=== PATIENT | female | born 1970 | race Caucasian/White ===

== ENCOUNTER 2019-04-07 14:57 | Inpatient (IN) | payer OTHER ==
[~2019-04-07] VITALS: Ht 170.2 cm; Wt 77.1 kg
[2019-04-07 15:16] VITALS: BP_SYST 128
[2019-04-07 16:33] LABS: BASOPHILS # (AUTO) 0.1 K/uL (0.0-0.2); BASOPHILS % (AUTO) 0.6 % (0.0-2.0); EOSINOPHILS % (AUTO) 0.3 % (0.0-4.0); HEMATOCRIT 36.7 % (36-48); HEMOGLOBIN 12.7 g/dL (12.0-16.0); LYMPHOCYTES # (AUTO) 0.6 K/uL (1.0-5.5); LYMPHOCYTES % (AUTO) 7.2 % (20.5-51.5); MEAN CORPUSCULAR HEMOGLOBIN 30 pg (27-31); MEAN CORPUSCULAR HGB CONC 35 % (32-36); MEAN CORPUSCULAR VOLUME 87 fL (79.0-98.0); MONOCYTES # (AUTO) 0.7 K/uL (0.0-1.0); MONOCYTES % (AUTO) 8.2 % (1.7-9.3); NEUTROPHILS # (AUTO) 7.2 K/uL (1.8-7.7); RED BLOOD CELL COUNT(AUTO) 4.21 MIL/uL (4.2-6.2); RED CELL DISTRIBUTION WIDTH 13.5 % (9.0-15.0); WHITE BLOOD COUNT (AUTO) 8.6 K/uL (4.8-10.8)
[2019-04-07 16:50] LABS: CALCIUM 9.1 mg/dL (8.4-11.0); CREATININE 2.08 mg/dL (0.55-1.30)
[2019-04-07 16:55] LABS: ALBUMIN 3.6 g/dL (3.4-4.8); TOTAL BILIRUBIN 5.4 mg/dL (0.0-1.0)
[2019-04-07 16:58] LABS: PLATELET COUNT (AUTO) 4 K/uL (130-430)
[2019-04-07 16:59] LABS: NEUTROPHILS % (AUTO) 83.7 % (40.0-70.0)
[2019-04-07] MEDS ORDERED: MORPHINE 2 MG/ML INJ. SYRINGE IVP ONE (17:00)
[2019-04-07 17:03] LABS: PROTHROMBIN TIME 10.5 SECS (9.5-12.5)
[2019-04-07 17:13] LABS: BILIRUBIN,URINE 3+ (NEGATIVE); BLOOD, URINE 3+ (NEGATIVE); CLARITY/URINE CLOUDY (CLEAR); COLOR,URINE BROWN (YELLOW); GLUCOSE,URINE TRACE (NEGATIVE); KETONES,URINE 1+ (NEGATIVE); LEUKOCYTE ESTERASE ,URINE 2+ (NEGATIVE); NITRITE, URINE POSITIVE (NEGATIVE); PROTEIN URINE 3+ (NEGATIVE)
[2019-04-07] MEDS ORDERED: PIPERACILLIN/TAZO 3.375 GM in NS 50 ML IV ONE (17:15)
[2019-04-07] MEDS ORDERED: NACL 0.9% IV ONE (17:15)
[2019-04-07] MEDS ORDERED: methylPREDNISolone SOD SUCC/PF 62.5 MG/ML VIAL IVP ONE (17:15)
[2019-04-07 17:31] LABS: BACTERIA,URINE MODERATE /HPF (None Seen); RBC,URINE 50-80 /HPF (0-3)
[2019-04-07 17:32] LABS: FINE GRANULAR CASTS,URINE 0-10 /LPF (None Seen); MUCUS,URINE None Seen /LPF (None Seen)
[2019-04-07] MEDS ORDERED: PANT20TA2 PO (17:40)
[2019-04-07] MEDS ORDERED: CEL20 PO (17:40)
[2019-04-07] MEDS ORDERED: LEVOFLOXACIN 500 MG/D5W 100 ML IV ONE (17:45)
[2019-04-07] MEDS ORDERED: PIPERACILLIN/TAZOBACTAM 3.375 GM/VIAL (ZOSYN) IV ONE (17:53)
[2019-04-07 18:09] LABS: BASOPHILS % (AUTO) 0.4 % (0.0-2.0); EOSINOPHILS % (AUTO) 0.2 % (0.0-4.0); HEMATOCRIT 33.4 % (36-48); HEMOGLOBIN 11.7 g/dL (12.0-16.0); LYMPHOCYTES # (AUTO) 0.8 K/uL (1.0-5.5); LYMPHOCYTES % (AUTO) 8.8 % (20.5-51.5); MEAN CORPUSCULAR HEMOGLOBIN 31 pg (27-31); MEAN CORPUSCULAR HGB CONC 35 % (32-36); MEAN CORPUSCULAR VOLUME 87 fL (79.0-98.0); MONOCYTES # (AUTO) 0.8 K/uL (0.0-1.0); MONOCYTES % (AUTO) 8.7 % (1.7-9.3); NEUTROPHILS # (AUTO) 7.2 K/uL (1.8-7.7); NEUTROPHILS % (AUTO) 81.9 % (40.0-70.0); RED BLOOD CELL COUNT(AUTO) 3.84 MIL/uL (4.2-6.2); RED CELL DISTRIBUTION WIDTH 13.5 % (9.0-15.0); WHITE BLOOD COUNT (AUTO) 8.8 K/uL (4.8-10.8)
[2019-04-07 18:21] LABS: PLATELET COUNT (AUTO) 6 K/uL (130-430)
[2019-04-07 19:59] VITALS: BP_SYST 133
[2019-04-07] MEDS ORDERED: ALBUTEROL SULFATE 0.083% 2.5 MG/3 ML VIAL.NEB INH PRN (20:15)
[2019-04-07 20:25] VITALS: BP_SYST 133
[2019-04-07] MEDS ORDERED: CEFEPIME 1 GM in D5W 50 ML IV SCH (21:00)
[2019-04-07] MEDS ORDERED: ONDANSETRON HCL 4 MG/2 ML VIAL IVP PRN (21:15)
[2019-04-07] MEDS ORDERED: CEFEPIME 1 GM/VIAL (MAXIPIME) ONE (21:25)
[2019-04-07] MEDS: MORPHINE 2 MG/ML INJ. SYRINGE IVP PRN (21:40)
[2019-04-07 23:00] LABS: BASOPHILS % (AUTO) 0.3 % (0.0-2.0); EOSINOPHILS % (AUTO) 0.1 % (0.0-4.0); HEMATOCRIT 28.6 % (36-48); HEMOGLOBIN 10.1 g/dL (12.0-16.0); LYMPHOCYTES # (AUTO) 0.6 K/uL (1.0-5.5); LYMPHOCYTES % (AUTO) 9.4 % (20.5-51.5); MEAN CORPUSCULAR HEMOGLOBIN 31 pg (27-31); MEAN CORPUSCULAR HGB CONC 35 % (32-36); MEAN CORPUSCULAR VOLUME 88 fL (79.0-98.0); MONOCYTES # (AUTO) 0.3 K/uL (0.0-1.0); MONOCYTES % (AUTO) 3.9 % (1.7-9.3); NEUTROPHILS # (AUTO) 5.6 K/uL (1.8-7.7); NEUTROPHILS % (AUTO) 86.3 % (40.0-70.0); RED BLOOD CELL COUNT(AUTO) 3.27 MIL/uL (4.2-6.2); RED CELL DISTRIBUTION WIDTH 13.7 % (9.0-15.0); WHITE BLOOD COUNT (AUTO) 6.5 K/uL (4.8-10.8)
[2019-04-07] MEDS: NACL 0.9% 1,000 ML IV SCH (23:18)
[2019-04-07] MEDS: methylPREDNISolone SOD SUCC/PF 62.5 MG/ML VIAL IVP SCH (23:19)
[2019-04-07 23:20] LABS: CALCIUM 7.5 mg/dL (8.4-11.0); CREATININE 2.26 mg/dL (0.55-1.30); POTASSIUM 3.9 mmol/L (3.5-5.1)
[2019-04-07 23:24] LABS: PLATELET COUNT (AUTO) 6 K/uL (130-430)
[2019-04-07 23:34] LABS: TOTAL BILIRUBIN 4.8 mg/dL (0.0-1.0)
[2019-04-08] VITALS (12 sets, daily range): BP systolic 132–144
[2019-04-08] MEDS: NACL 0.9% 1,000 ML IV SCH ×2 (04:03→09:38)
[2019-04-08] MEDS: methylPREDNISolone SOD SUCC/PF 62.5 MG/ML VIAL IVP SCH ×3 (05:29→17:13)
[2019-04-08] MEDS ORDERED: INSULIN LISPRO SLIDING SCALE 100 UNITS/ML VIAL (humaLOG) SUBCUT PRN (05:45)
[2019-04-08 06:25] LABS: ALBUMIN 3.2 g/dL (3.4-4.8); CALCIUM 8.3 mg/dL (8.4-11.0); CREATININE 2.2 mg/dL (0.55-1.30); TOTAL BILIRUBIN 3.6 mg/dL (0.0-1.0)
[2019-04-08 06:57] LABS: BASOPHILS % (AUTO) 0.2 % (0.0-2.0); LYMPHOCYTES # (AUTO) 0.7 K/uL (1.0-5.5); MEAN CORPUSCULAR HEMOGLOBIN 31 pg (27-31); MEAN CORPUSCULAR HGB CONC 35 % (32-36); MEAN CORPUSCULAR VOLUME 87 fL (79.0-98.0)
[2019-04-08 08:48] LABS: RETICULOCYTE COUNT 2.3 % (0.5-1.5)
[2019-04-08 09:02] LABS: BILIRUBIN,DIRECT 1.1 mg/dL (0.0-0.3)
[2019-04-08] MEDS: INSULIN LISPRO SLIDING SCALE 100 UNITS/ML VIAL (humaLOG) SUBCUT PRN ×2 (11:34→17:17)
[2019-04-08] MEDS ORDERED: DIPHENHYDRAMINE HCL 12.5 MG/5 ML UDC NG ONE (12:15)
[2019-04-08 12:54] LABS: HEMATOCRIT 25.4 % (36-48); HEMOGLOBIN 8.9 g/dL (12.0-16.0); MONOCYTES # (AUTO) 0.4 K/uL (0.0-1.0); MONOCYTES % (AUTO) 4.4 % (1.7-9.3); NEUTROPHILS # (AUTO) 7.2 K/uL (1.8-7.7); NEUTROPHILS % (AUTO) 87.4 % (40.0-70.0); RED BLOOD CELL COUNT(AUTO) 2.91 MIL/uL (4.2-6.2); RED CELL DISTRIBUTION WIDTH 13.8 % (9.0-15.0); WHITE BLOOD COUNT (AUTO) 8.3 K/uL (4.8-10.8)
[2019-04-08 12:58] LABS: PLATELET COUNT (AUTO) 10 K/uL (130-430)
[2019-04-08] MEDS ORDERED: HEPARIN SODIUM,PORCINE 5000 UNITS/ML VIAL SUBCUT ONE (13:15)
[2019-04-08] MEDS: MORPHINE 2 MG/ML INJ. SYRINGE IVP PRN (20:02)
[2019-04-09 08:09] LABS: HEPATITIS A AB, IgM Negative (Negative); HEPATITIS B CORE AB, IgM Negative (Negative); HEPATITIS B SURFACE AG Negative (Negative)
[2019-04-09 18:06] LABS: ANTI NUCLEAR AB WITH REFLEX Negative (Negative)
[2019-04-11 13:07] LABS: HEPARIN INDUCED PLT AB 0.277 OD (0.000-0.400)
== END 2019-04-08 21:25 | disposition short-term general hospital (02) | DRG 546 ==
LOC: SED 14:57 → STU 18:40
PROVIDERS: ADMIT Internal Medicine; ATTEND Internal Medicine
PROC: 30233R1 Transfusion of Nonautologous Platelets into Peripheral Vein, Percutaneous Approach (ICD-10-PCS; 2019-04-07)
PROC: 30233K1 Transfusion of Nonautologous Frozen Plasma into Peripheral Vein, Percutaneous Approach (ICD-10-PCS; principal; 2019-04-08)
PROC: 02HV33Z Insertion of Infusion Device into Superior Vena Cava, Percutaneous Approach (ICD-10-PCS; 2019-04-08)
PROC: B548ZZA Ultrasonography of Superior Vena Cava, Guidance (ICD-10-PCS; 2019-04-08)
DX: M31.1 Thrombotic microangiopathy (principal); E87.1 Hypo-osmolality and hyponatremia; N12 Tubulo-interstitial nephritis, not specified as acute or chronic; E11.9 Type 2 diabetes mellitus without complications; R31.9 Hematuria, unspecified; I10 Essential (primary) hypertension; F41.9 Anxiety disorder, unspecified; Z79.899 Other long term (current) drug therapy; Z91.14 Patient's other noncompliance with medication regimen
CPT/HCPCS: 36415; 71045; 76700-TC; 76937; 80053; 80074; 81000-TC; 82247-TC; 82248-TC; 82607; 82746; 82962; 83010; 83605; 83615-TC; 83690-TC; 84484; 85025; 85044-TC; 85049-TC; 85379; 85384-TC; 85610-TC; 85730-TC; 86022; 86038; 86705; 86709; 86880-TC; 86886; 86900; 86901; 87040-TC; 87086; 87340; 93005; 93306; 96365; 96367; 96375; 99291; C1751; G0378; J0692; J1644; J1956; J2270; J2405; J2543; J2930; J7030; J7040; J7050; J7060; P9034; P9059

== ENCOUNTER 2022-06-07 04:47 | Emergency (ER) | payer OTHER ==
[~2022-06-07] VITALS: Ht 157.5 cm; Wt 65.8 kg
[~2022-06-07 04:47] MED LIST: CEL20 PO; PANT20TA2 PO
--- NOTE | 2022-06-07 05:00 | NUR ---
Patient ambulated to bed 6 & connectecd to CM.
[2022-06-07 05:03] VITALS: BP_SYST 134
--- NOTE | 2022-06-07 05:03 | NUR ---
Patient triaged and placed in ED rm 6. VSS and patient appears in no acute distress at this time. Accompanied by . MD Chavez notified of need for MSE. Report given to JACLYN Ferrer.
[2022-06-07] MEDS ORDERED: NACL 0.9% 1,000 ML IV ONE (05:15)
[2022-06-07] MEDS ORDERED: ONDANSETRON HCL 4 MG/2 ML VIAL IVP ONE (05:15)
--- NOTE | 2022-06-07 05:19 | NUR ---
Dr. Chavez at bedside for evaluation.
[2022-06-07 05:40] LABS: BILIRUBIN,URINE 1+ (NEGATIVE); BLOOD, URINE NEGATIVE (NEGATIVE); COLOR,URINE YELLOW (YELLOW); GLUCOSE,URINE NEGATIVE (NEGATIVE); KETONES,URINE TRACE (NEGATIVE); LEUKOCYTE ESTERASE ,URINE TRACE (NEGATIVE); NITRITE, URINE NEGATIVE (NEGATIVE); PH,URINE 6.5 (5.0-8.0); PROTEIN URINE 1+ (NEGATIVE); UROBILINOGEN,URINE 0.2 (0.2-1.0)
[2022-06-07 05:42] LABS: CLARITY/URINE HAZY (CLEAR)
[2022-06-07 05:49] LABS: RBC,URINE 0-3 /HPF (0-3)
[2022-06-07 05:50] LABS: BACTERIA,URINE FEW /HPF (None Seen); CALCIUM OXALATE CRYSTALS,UR 0-10 /HPF (None Seen)
[2022-06-07 05:51] LABS: MUCUS,URINE 1+ /LPF (None Seen)
[2022-06-07 05:55] LABS: BASOPHILS # (AUTO) 0.2 K/uL (0.0-0.2); BASOPHILS % (AUTO) 2.5 % (0.0-2.0); EOSINOPHILS % (AUTO) 0.7 % (0.0-4.0); HEMATOCRIT 40.3 % (36-48); HEMOGLOBIN 13.9 g/dL (12.0-16.0); LYMPHOCYTES # (AUTO) 0.6 K/uL (1.0-5.5); LYMPHOCYTES % (AUTO) 7.9 % (20.5-51.5); MEAN CORPUSCULAR HEMOGLOBIN 29 pg (27-31); MEAN CORPUSCULAR HGB CONC 35 % (32-36); MEAN CORPUSCULAR VOLUME 83 fL (79.0-98.0); MONOCYTES # (AUTO) 0.5 K/uL (0.0-1.0); MONOCYTES % (AUTO) 7.1 % (1.7-9.3); NEUTROPHILS # (AUTO) 5.9 K/uL (1.8-7.7); NEUTROPHILS % (AUTO) 81.8 % (40.0-70.0); PLATELET COUNT (AUTO) 301 K/uL (130-430); RED BLOOD CELL COUNT(AUTO) 4.89 MIL/uL (4.2-6.2); RED CELL DISTRIBUTION WIDTH 13.5 % (9.0-15.0); WHITE BLOOD COUNT (AUTO) 7.2 K/uL (4.8-10.8)
[2022-06-07] MEDS ORDERED: ONDA8TAB60 PO (06:05)
[2022-06-07] MEDS ORDERED: IBUP-1969 PO (06:05)
[2022-06-07 06:08] LABS: CALCIUM 9.6 mg/dL (8.4-11.0); CREATININE 1.02 mg/dL (0.55-1.30)
[2022-06-07 06:14] LABS: ALBUMIN 4.3 g/dL (3.4-4.8); TOTAL BILIRUBIN 0.3 mg/dL (0.0-1.0)
--- NOTE | 2022-06-07 06:20 | NUR ---
Dr. Xiao at bedside discussing labs & Tx plan. MD will dsicharge patient home.
[2022-06-07 06:25] VITALS: BP_SYST 117
--- NOTE | 2022-06-07 06:25 | NUR ---
Patient given written and verbal discharge instructions and verbalizes understanding. ER MD discussed with patient the results and treatment provided. Patient in stable condition. ID arm band removed. IV catheter removed intact and dressing applied, no active bleeding. Rx of Ibuprofen & Zofrn given. Patient educated on pain management and to follow up with PMD. Pain Scale 0/10. Opportunity for questions provided and answered. Medication side effect fact sheet provided.
== END 2022-06-07 06:25 | disposition home or self-care (01) ==
LOC: SED 04:47
DX: R53.1 Weakness (principal); R11.2 Nausea with vomiting, unspecified; R50.9 Fever, unspecified; R42 Dizziness and giddiness; E11.9 Type 2 diabetes mellitus without complications; Z79.899 Other long term (current) drug therapy
CPT/HCPCS: 99283; 96374; 96361; 80053; 81000; 83690; 85025; 36415; J2405; J7030

== ENCOUNTER 2022-06-13 10:19 | Emergency (ER) | payer OTHER ==
[~2022-06-13] VITALS: Ht 157.5 cm; Wt 65.8 kg
[~2022-06-13 10:19] MED LIST changes: +IBUP-1969 PO; +ONDA8TAB60 PO
[2022-06-13 10:56] VITALS: BP_SYST 128
--- NOTE | 2022-06-13 11:05 | NUR ---
MD DR RADFORD AT BEDSIDE
--- NOTE | 2022-06-13 11:10 | NUR ---
XRAY AT BEDSIDE
[2022-06-13 11:44] LABS: BASOPHILS # (AUTO) 0.1 K/uL (0.0-0.2); BASOPHILS % (AUTO) 0.8 % (0.0-2.0); EOSINOPHILS % (AUTO) 0.1 % (0.0-4.0); HEMATOCRIT 32.8 % (36-48); HEMOGLOBIN 11.3 g/dL (12.0-16.0); LYMPHOCYTES # (AUTO) 2.6 K/uL (1.0-5.5); LYMPHOCYTES % (AUTO) 35.5 % (20.5-51.5); MEAN CORPUSCULAR HEMOGLOBIN 28 pg (27-31); MEAN CORPUSCULAR HGB CONC 34 % (32-36); MEAN CORPUSCULAR VOLUME 83 fL (79.0-98.0); MONOCYTES # (AUTO) 0.5 K/uL (0.0-1.0); MONOCYTES % (AUTO) 6.6 % (1.7-9.3); NEUTROPHILS # (AUTO) 4.1 K/uL (1.8-7.7); PLATELET COUNT (AUTO) 166 K/uL (130-430); RED BLOOD CELL COUNT(AUTO) 3.97 MIL/uL (4.2-6.2); RED CELL DISTRIBUTION WIDTH 14.2 % (9.0-15.0); WHITE BLOOD COUNT (AUTO) 7.3 K/uL (4.8-10.8)
[2022-06-13 12:00] LABS: ANION GAP 6 (5-15); CALCIUM 8.8 mg/dL (8.4-11.0); CHLORIDE 95 mmol/L (98-107); CREATININE 1.14 mg/dL (0.55-1.30); GLUCOSE 185 mg/dL (70-99); UREA NITROGEN, BLOOD 17 mg/dL (8-21)
[2022-06-13 12:01] LABS: GFR AFRICAN AMERICAN 64 mL/min (>90)
--- NOTE | 2022-06-13 12:04 | NUR ---
PT BIB AWAKE AND ALERT AOX4. NO SOB OR DISTRESS. PT C/O FEVER AND BODYACHE X8 DAYS. PT DENIES N/V. PT STATES PAIN FROM HIP TO LOWER LEGS. PAIN 8/.
[2022-06-13 12:13] LABS: ALANINE AMINOTRANSFERASE 68 U/L (12-78); ALBUMIN 2.9 g/dL (3.4-4.8); ASPARTATE AMINOTRANSFERASE 85 U/L (10-37); TOTAL BILIRUBIN 1.2 mg/dL (0.0-1.0)
--- NOTE | 2022-06-13 12:15 | NUR ---
INFLUENZA SWAB SENT TO LAB.
[2022-06-13 12:37] LABS: BILIRUBIN,URINE NEGATIVE (NEGATIVE); BLOOD, URINE 2+ (NEGATIVE); CLARITY/URINE CLEAR (CLEAR); COLOR,URINE YELLOW (YELLOW); GLUCOSE,URINE 1+ (NEGATIVE); KETONES,URINE NEGATIVE (NEGATIVE); LEUKOCYTE ESTERASE ,URINE 1+ (NEGATIVE); NITRITE, URINE NEGATIVE (NEGATIVE); PH,URINE 6.5 (5.0-8.0); PROTEIN URINE TRACE (NEGATIVE); UROBILINOGEN,URINE 0.2 (0.2-1.0)
[2022-06-13] MEDS ORDERED: IBUP-1969 PO (12:41)
[2022-06-13] MEDS ORDERED: OSEL75CA PO (12:41)
[2022-06-13 12:49] LABS: BACTERIA,URINE FEW /HPF (None Seen)
[2022-06-13 13:54] VITALS: BP_SYST 128
--- NOTE | 2022-06-13 13:57 | NUR ---
Patient given written and verbal discharge instructions and verbalizes understanding. ER MD DR RADFORD discussed with patient the results and treatment provided. Patient in stable condition. ID arm band removed. IV catheter removed intact and dressing applied, no active bleeding. Rx of TAMAFLU AND MOTRIN given. Patient educated on pain management and to follow up with PMD. Pain Scale 4/10. Opportunity for questions provided and answered. Medication side effect fact sheet provided.
== END 2022-06-13 13:57 | disposition home or self-care (01) ==
LOC: SED 10:19
DX: J10.1 Influenza due to other identified influenza virus with other respiratory manifestations (principal); R50.9 Fever, unspecified; M79.10 Myalgia, unspecified site; E11.9 Type 2 diabetes mellitus without complications; Z79.899 Other long term (current) drug therapy; Z20.822 Contact with and (suspected) exposure to COVID-19
CPT/HCPCS: 36415; 71045; 80053; 81000; 83605; 84484; 85025; 87040; 87086; 93005; 99285